=== PATIENT | female | born 1985 ===

== ENCOUNTER 2017-12-10 16:28 | Emergency (ER) | payer OTHER ==
--- NOTE | 2017-12-10 19:35 | ED PDOC ---
HPI: Skin/Bite Injury Time Seen by Provider: 12/10/17 17:00 Chief Complaint (Nursing): Groin Pain Chief Complaint (Provider): Tender "ball" left groin x 1 year, worse x 4 days - pink urine History Per: Patient History/Exam Limitations: no limitations Onset/Duration Of Symptoms: Days Current Symptoms Are (Timing): Still Present Additional Complaint(s): 32 yo female with no medical problems presents with palpable ball in the left groin for 1 year. Pt states she saw a doctor once for it and was given medications. Pt states states she is not sure what she was given but thinks it was an antibiotic. Pt states its seemed to be a little better but returned as soon as the course of medication was complete. Pt states it has been a little tender the last few days. Pt states she noticed her urine look pink in color this morning which prompted her visit to the ER today. Past Medical History Reviewed: Historical Data, Nursing Documentation, Vital Signs Vital Signs: Last Vital Signs Temp 98 F 12/10/17 16:53 Pulse 71 12/10/17 16:53 Resp 17 12/10/17 16:53 BP 102/67 12/10/17 16:53 Pulse Ox 100 12/10/17 20:35 - Medical History PMH: No Chronic Diseases - Surgical History Surgical History: No Surg Hx - Family History Family History: States: No Known Family Hx - Allergies Allergies/Adverse Reactions: Allergies Allergy/AdvReac Type Severity Reaction Status Date / Time No Known Allergies Allergy Verified 12/10/17 16:57 Review of Systems ROS Statement: Except As Marked, All Systems Reviewed And Found Negative Constitutional: Negative for: Fever, Chills Skin: Positive for: Other Physical Exam - Reviewed Nursing Documentation Reviewed: Yes Vital Signs Reviewed: Yes - Physical Exam Appears: Positive for: Well, Non-toxic, No Acute Distress Head Exam: Positive for: ATRAUMATIC, NORMAL INSPECTION, NORMOCEPHALIC Skin: Positive for: Normal Color, Warm, DRY Eye Exam: Positive for: Normal appearance ENT: Positive for: Normal ENT Inspection Neck: Positive for: Normal, Painless ROM Respiratory: Negative for: Accessory Muscle Use, Respiratory Distress Gastrointestinal/Abdominal: Positive for: Normal Exam, Soft, Other ((+) tender palpable mass approx 1 cm in diameter, movable in the left groin). Negative for : Tenderness Back: Positive for: Normal Inspection Extremity: Positive for: Normal ROM Neurologic/Psych: Positive for: Alert, Oriented - ECG O2 Sat by Pulse Oximetry: 100 Medical Decision Making Medical Decision Making: Urine normal Disposition - Clinical Impression Clinical Impression: Lymph node enlargement - Disposition Referrals: [facility] [place] [Outside] Disposition: Routine/Home Disposition Time: 20:39 Condition: STABLE Additional Instructions: Please follow-up with PMD for further evaluation of lymph node enlargement. Instructions: Chronic Lymphadenitis (DC) Forms: [employer] (Wolof)
[2017-12-10 20:57] VITALS: BP 110/64; PULSE 80; RESP 16; TEMP 98.2; O2SAT 98
--- NOTE | 2017-12-11 09:22 | US ---
PROCEDURE: Soft tissue ultrasound, limited HISTORY: Left groin, mass vs lymph node COMPARISON: None. TECHNIQUE: Real-time grayscale and color Doppler evaluation of the left groin area of concern FINDINGS: In the left groin (area of concern, multiple prominent, but not enlarged lymph nodes are noted. No foreign body, abscess or fluid collection is evident. IMPRESSION: Multiple prominent nonspecific lymph nodes, the largest of which measures up to 1.3 cm
== END 2017-12-10 20:54 | disposition home or self-care (01) ==
LOC: H.ER 16:28
DX: R59.9 Enlarged lymph nodes, unspecified (principal)

== ENCOUNTER 2018-01-08 11:03 | Emergency (ER) | payer OTHER ==
[2018-01-08 11:10] VITALS: BMI 21.7
[2018-01-08 11:14] VITALS: BP 106/68; PULSE 69; RESP 16; TEMP 98.1; O2SAT 100
--- NOTE | 2018-01-08 12:23 | ED PDOC ---
HPI: Skin/Bite Injury Time Seen by Provider: 01/08/18 12:16 Chief Complaint (Nursing): Abnormal Skin Integrity Chief Complaint (Provider): Rash History Per: Patient History/Exam Limitations: no limitations Onset/Duration Of Symptoms: Days (x1 week) Current Symptoms Are (Timing): Still Present Location Of Injury: Right: Leg, Left: Leg Quality Of Symptoms: Itching Additional Complaint(s): Lilly Tejada is a 32 year old female, with no significant past medical history, who presents to the emergency department complaining of an itchy rash to bilateral legs onset for x1 week. Patient reports using ointment without any relief. She denies any recent new foods or environmental exposure. She denies any fever, chills, nausea, vomit, diarrhea, throat swelling, mouth swelling or shortness of breath. No further medical complaints. PMD: None provided. Past Medical History Reviewed: Historical Data, Nursing Documentation, Vital Signs Vital Signs: Last Vital Signs Temp 98.1 F 01/08/18 11:11 Pulse 69 01/08/18 11:11 Resp 16 01/08/18 11:11 BP 106/68 01/08/18 11:11 Pulse Ox 100 01/08/18 12:34 - Medical History PMH: No Chronic Diseases - Surgical History Surgical History: Appendectomy - Family History Family History: States: Unknown Family Hx - Social History Current smoker - smoking cessation education provided: No Alcohol: None Drugs: Denies - Home Medications Home Medications: Ambulatory Orders Medication Instructions Recorded Mupirocin 2% Ointment [Bactroban 1 appl TP BID #1 tube 01/08/18 Ointment] - Allergies Allergies/Adverse Reactions: Allergies Allergy/AdvReac Type Severity Reaction Status Date / Time No Known Allergies Allergy Verified 01/08/18 11:57 Review of Systems ROS Statement: Except As Marked, All Systems Reviewed And Found Negative Constitutional: Negative for: Fever, Chills ENT: Negative for: Mouth Swelling, Throat Swelling Respiratory: Negative for: Shortness of Breath Gastrointestinal: Negative for: Nausea, Vomiting, Diarrhea Skin: Positive for: Rash (itchy to b/l legs) Physical Exam - Reviewed Nursing Documentation Reviewed: Yes Vital Signs Reviewed: Yes - Physical Exam Appears: Positive for: Non-toxic, No Acute Distress Head Exam: Positive for: ATRAUMATIC, NORMOCEPHALIC Skin: Positive for: Normal Color, Warm, Dry, Rash (blanching erythema at the base of every hair follicle in bilateral lower extremity) Eye Exam: Positive for: Normal appearance, EOMI, PERRL ENT: Positive for: Normal ENT Inspection Neck: Positive for: Painless ROM Cardiovascular/Chest: Positive for: Regular Rate, Rhythm. Negative for: Murmur Respiratory: Positive for: Normal Breath Sounds. Negative for: Respiratory Distress Extremity: Positive for: Normal ROM (upper and lower extremities). Negative for : Tenderness, Deformity, Swelling Neurologic/Psych: Positive for: Alert, Oriented. Negative for: Motor/Sensory Deficits - ECG O2 Sat by Pulse Oximetry: 100 (RA) Pulse Ox Interpretation: Normal Medical Decision Making Medical Decision Making: Time: 12:17 Initial Impression: Folliculitis Initial Plan: 12:30 Upon provider evaluation patient is medically stable, and requires no further treatment in the ED at this time. Patient will be discharged home with Rx for Bactroban ointment. Counseling was provided and all questions were answered regarding diagnosis. There is agreement to discharge plan. Return if symptoms persist or worsen. Scribe Attestation: Documented by Arden George, acting as a scribe for Shital Copeland PA-C Provider Scribe Attestation: All medical record entries made by the Scribe were at my direction and personally dictated by me. I have reviewed the chart and agree that the record accurately reflects my personal performance of the history, physical exam, medical decision making, and the department course for this patient. I have also personally directed, reviewed, and agree with the discharge instructions and disposition. Disposition - Clinical Impression Clinical Impression: Folliculitis - Disposition Disposition: Routine/Home Disposition Time: 12:25 Condition: STABLE Prescriptions: Mupirocin 2% Ointment [Bactroban Ointment] 1 appl TP BID #1 tube Instructions: Folliculitis (DC) Forms: [facility] (Georgian)
== END 2018-01-08 12:54 | disposition home or self-care (01) ==
LOC: H.ER 11:03
DX: L73.9 Follicular disorder, unspecified (principal)